=== PATIENT | male | born 1970 | race American Indian/Alaskan Native ===

== ENCOUNTER 2020-01-22 15:55 | Emergency (ER) | payer SELFPAY ==
--- NOTE | 2020-01-22 16:05 | Event Note ---
ED Screening Note Date of service: 01/22/20 Time: 16:03 ED Screening Note: Pt complains of weakness and dehydration states he was trying to donate plasma and was told he was dehydrated chronic alcoholism denies chest pain or SOB This initial assessment/diagnostic orders/clinical plan/treatment(s) is/are subject to change based on patients health status, clinical progression and re- assessment by fellow clinical providers in the ED. Further treatment and workup at subsequent clinical providers discretion. Patient/guardian urged not to elope from the ED as their condition may be serious if not clinically assessed and managed. Initial orders include: labs
[2020-01-22 17:27] LABS: Basophils # (Auto) 0.1 K/mm3 (0.0-0.1); Basophils % (Auto) 1.3 % (0.0-1.8); Eosinophils # (Auto) 0.1 K/mm3 (0.0-0.4); Eosinophils % (Auto) 1.5 % (0.0-4.3); Hematocrit 38.1 % (35.5-45.6); Hemoglobin 13.6 gm/dl (11.8-15.2); Lymphocytes # (Auto) 2.6 K/mm3 (1.2-5.4); Lymphocytes % (Auto) 41.2 % (13.4-35.0); Mean Corpuscular HGB Conc 36 % (32-34); Mean Corpuscular Volume 107 fl (84-94); Monocytes # (Auto) 0.7 K/mm3 (0.0-0.8); Monocytes % (Auto) 11.8 % (0.0-7.3); Platelet Count 221 K/mm3 (140-440); Red Blood Count 3.55 M/mm3 (3.65-5.03); Red Cell Distribution Width 14.8 % (13.2-15.2)
[2020-01-22 17:51] LABS: Alanine Aminotransferase 26 units/L (7-56); Albumin 4.3 g/dL (3.9-5); BUN/Creatinine Ratio 8; Blood Urea Nitrogen 7 mg/dL (9-20); Calcium 9.5 mg/dL (8.4-10.2); Hemolysis Index 11
[2020-01-22 18:34] LABS: Bilirubin,Urine NEG (Negative); Blood,Urine NEG (Negative); Color,Urine Yellow (Yellow); Mucus,Urine 2+ /HPF
[2020-01-22] MEDS ORDERED: SODIUM CHLORIDE 0.9% 1000 ML 1,000 ML IV ONE (19:27)
[2020-01-22 20:52] VITALS: BP 143/99
--- NOTE | 2020-01-22 21:14 | Emergency Department Report ---
ED General Adult HPI - General Chief complaint: Medical Clearance Stated complaint: DEHYDRATION Time Seen by Provider: 01/22/20 16:03 Source: patient Mode of arrival: Ambulatory Limitations: No Limitations - History of Present Illness Initial comments: Patient is a 49-year-old -[place] male with a history of chronic heavy alcohol abuse, hypertension, heavy tobacco abuse and illegal drug use presents to the ED with complaint of acute onset persistent diffuse generalized weakness and fatigue for the last 1 week. Patient states that he was initially evaluated at the plasma donation center where he had gone to donate blood, and was advised to come to the ED because he appeared dehydrated. Patient states that he could not find his veins in order for him to be admitted the night blood and therefore was told to come to the ED for evaluation of possible dehydration. Patient denies chest pain, shortness of breath, fever, chills, cough, abdominal pain, nausea and vomiting or diarrhea, dysuria, urinary frequency and urgency, sore throat, nasal and sinus congestion or headache. MD Complaint: generalized weakness and fatigue; dehydrated -: Gradual, week(s) (1) Location: head, chest Radiation: non-radiation Severity scale (0 -10): 0 Quality: dull Consistency: constant Improves with: none Worsens with: none Associated Symptoms: denies other symptoms, loss of appetite, malaise, weakness. denies: confusion, chest pain, cough, diaphoresis, fever/chills, headaches, nausea/vomiting, rash, seizure, shortness of breath, syncope, other Treatments Prior to Arrival: none - Related Data Previous Rx's Medication Instructions Recorded Last Taken Type Amoxicillin [Trimox CAP] 500 mg PO Q8H #21 capsule 12/28/14 Unknown Rx Ibuprofen [Motrin 800 MG tab] 800 mg PO Q8HR PRN #60 tablet 12/28/14 Unknown Rx traMADoL [Ultram 50 MG tab] 50 mg PO Q4HR PRN #14 tablet 12/28/14 Unknown Rx Allergies Allergy/AdvReac Type Severity Reaction Status Date / Time Penicillins Allergy Unknown Verified 11/25/19 23:57 ED Review of Systems ROS: Stated complaint: DEHYDRATION Other details as noted in HPI Constitutional: malaise, weakness. denies: chills, fever Eyes: denies: eye pain, eye discharge, vision change ENT: denies: ear pain, throat pain Respiratory: denies: cough, shortness of breath, wheezing Cardiovascular: denies: chest pain, palpitations Endocrine: no symptoms reported Gastrointestinal: denies: abdominal pain, nausea, vomiting, diarrhea Genitourinary: denies: urgency, dysuria Musculoskeletal: denies: back pain, joint swelling, arthralgia Skin: denies: rash, lesions Neurological: denies: headache, weakness, paresthesias, confusion Psychiatric: denies: anxiety, depression Hematological/Lymphatic: denies: easy bleeding, easy bruising ED Past Medical Hx - Past Medical History Previous Medical History?: Yes Hx Hypertension: Yes Hx Congestive Heart Failure: No Hx Diabetes: No Hx Asthma: No Hx COPD: No - Surgical History Past Surgical History?: No - Social History Smoking Status: Current Every Day Smoker Substance Use Type: Alcohol - Medications Home Medications: Home Medications Medication Instructions Recorded Confirmed Last Taken Type Amoxicillin [Trimox CAP] 500 mg PO Q8H #21 capsule 12/28/14 Unknown Rx Ibuprofen [Motrin 800 MG tab] 800 mg PO Q8HR PRN #60 tablet 12/28/14 Unknown Rx traMADoL [Ultram 50 MG tab] 50 mg PO Q4HR PRN #14 tablet 12/28/14 Unknown Rx ED Physical Exam - General Limitations: No Limitations General appearance: alert, in no apparent distress - Head Head exam: Present: atraumatic, normocephalic, normal inspection - Eye Eye exam: Present: normal appearance, PERRL, EOMI Pupils: Present: normal accommodation - ENT ENT exam: Present: normal exam, normal orophraynx, mucous membranes moist, TM's normal bilaterally, normal external ear exam - Neck Neck exam: Present: normal inspection, full ROM - Respiratory Respiratory exam: Present: normal lung sounds bilaterally. Absent: respiratory distress, wheezes, rales, rhonchi, chest wall tenderness, accessory muscle use, decreased breath sounds, prolonged expiratory - Cardiovascular Cardiovascular Exam: Present: regular rate, normal rhythm, normal heart sounds. Absent: systolic murmur, diastolic murmur, rubs, gallop - GI/Abdominal GI/Abdominal exam: Present: soft, normal bowel sounds. Absent: tenderness, guarding, rebound, hyperactive bowel sounds, hypoactive bowel sounds, organomegaly - Extremities Exam Extremities exam: Present: normal inspection, full ROM, normal capillary refill - Back Exam Back exam: Present: normal inspection, full ROM. Absent: tenderness, CVA tenderness (R), CVA tenderness (L), muscle spasm, paraspinal tenderness, vertebral tenderness - Neurological Exam Neurological exam: Present: alert, oriented X3, CN II-XII intact, normal gait, reflexes normal - Psychiatric Psychiatric exam: Present: normal affect, normal mood - Skin Skin exam: Present: warm, dry, intact, normal color. Absent: rash ED Course Vital Signs 01/22/20 01/22/20 16:00 20:52 Temperature 98.0 F 98.1 F Pulse Rate 61 73 Respiratory 16 16 Rate Blood Pressure 106/72 143/99 [Right] O2 Sat by Pulse 100 98 Oximetry ED Medical Decision Making - Lab Data Result diagrams: 01/22/20 17:00 01/22/20 17:00 - Radiology Data Radiology results: report reviewed, image reviewed - Medical Decision Making This is a 49-year-old -[place] male with a history of chronic heavy alcohol abuse, hypertension, heavy tobacco abuse and illegal drug use presents to the ED with complaint of acute onset persistent diffuse generalized weakness and fatigue for the last 1 week. Patient states that he was initially evaluated at the plasma donation center where he had gone to donate blood, and was advised to come to the ED because he appeared dehydrated. Patient states that he could not find his veins in order for him to be admitted the night blood and therefore was told to come to the ED for evaluation of possible dehydration. In the ED, patient is alert and oriented x3 and is not in distress. Patient is hemodynamically stable. Lab test results were reviewed and are all nonactionable. Chest x-ray shows no acute cardiopulmonary abnormalities or pneumonitis. Patient received normal saline 1 L IV bolus x1 in the ED. On reevaluation, patient felt better and was discharged home and advised to continue to hydrate at home and follow-up with his primary care physician in 5 to 7 days for reevaluation. Patient was also counseled on the importance of quitting tobacco, alcohol and substance abuse. Patient was advised to return to the ED immediately if symptoms get worse. - Differential Diagnosis Polysubstance abuse, dehydration, generalized weakness Critical care attestation.: If time is entered above; I have spent that time in minutes in the direct care of this critically ill patient, excluding procedure time. ED Disposition Clinical Impression: Generalized weakness Disposition: DC-01 TO HOME OR SELFCARE Is pt being admited?: No Does the pt Need Aspirin: No Condition: Stable Instructions: Weakness (ED) Additional Instructions: All lab test results are unremarkable including chest x-ray which shows no acute cardiopulmonary abnormalities. Therefore drink plenty of fluids and follow-up with your primary care physician as needed. Return to the ED immediately if symptoms get worse. Consider quitting tobacco smoking habit, alcohol abuse and illegal drug use. Referrals: [facility] [Outside] - 3-5 Days Time of Disposition: 21:20 Print Language: MAORI
--- NOTE | 2020-01-22 21:24 | XRay Report ---
CHEST 2 VIEWS INDICATION / CLINICAL INFORMATION: Weakness, dehydration COMPARISON: Radiograph dated 11/25/2019. FINDINGS: SUPPORT DEVICES: None. HEART / MEDIASTINUM: Stable. LUNGS / PLEURA: No significant pulmonary or pleural abnormality. No pneumothorax. ADDITIONAL FINDINGS: No significant additional findings. IMPRESSION: No acute cardiopulmonary abnormality. Signer Name: Karson Monaco MD Signed: 01/22/2020 9:19 PM Workstation Name: [id number]
== END 2020-01-22 21:30 | disposition home or self-care (01) ==
LOC: ED 15:55
DX: R53.1 Weakness (principal); I10 Essential (primary) hypertension; F17.200 Nicotine dependence, unspecified, uncomplicated; Z79.899 Other long term (current) drug therapy; Z88.0 Allergy status to penicillin
CPT/HCPCS: 36415; 71046; 80053; 81001; 84484; 85025; 93005; 96360; 99284; J7030

== ENCOUNTER 2021-12-26 12:58 | Emergency (ER) | payer SELFPAY ==
[2021-12-26] MEDS ORDERED: HALOPERIDOL LACTATE 5 MG/1 ML INJ IM ONE (13:17)
[2021-12-26] MEDS ORDERED: LORazepam 2 MG/ML VIAL IV PRN ×3 (13:23)
[2021-12-26] MEDS ORDERED: ONDANSETRON 4 MG/2 ML INJ IV ONE (13:23)
[2021-12-26] MEDS ORDERED: PANTOPRAZOLE 40 MG INJ IV ONE (13:23)
--- NOTE | 2021-12-26 13:27 | Emergency Department Report ---
ED General Adult HPI - General Chief complaint: Alcohol Stated complaint: ALCOHOL WITHDRAWALS PUI?: No Time Seen by Provider: 12/26/21 13:10 Source: patient, EMS (Verbal report received from emergency medical services. E MS documentation not available at time of chart dictation ), RN notes reviewed Mode of arrival: Stretcher Limitations: No Limitations - History of Present Illness Initial comments: The patient was evaluated in the emergency department for symptoms described in the history of present illness. He/she was evaluated in the context of the global COVID-19 pandemic, which necessitated consideration that the patient might be at risk for infection with the virus that causes COVID-19. Institutional protocols and algorithms that pertain to the evaluation of patients at risk for COVID-19 are in a state of rapid change based on information released by regulatory bodies including the CDC and federal and state organizations. These policies and algorithms were followed during the patient's care in the emergency department. Please note that these policies, procedures and recommendations changed on a rapid basis. The patient is a 51-year-old gentleman. He has a history of alcohol dependence. He typically drinks daily. He presents to the department today with a complaint of diffuse abdominal pain, nausea vomiting, reports mechanical fall hitting his head about a week and 1/2 to 2 weeks ago, and hallucinations. He denies homicidality and suicidality. Last alcoholic binge was 2 days ago. -: Gradual Location: back, abdomen Radiation: back, abdomen Consistency: constant Improves with: none Worsens with: eating - Related Data Previous Rx's Medication Instructions Recorded Last Taken Type Amoxicillin [Trimox CAP] 500 mg PO Q8H #21 capsule 12/28/14 Unknown Rx Ibuprofen [Motrin 800 MG tab] 800 mg PO Q8HR PRN #60 tablet 12/28/14 Unknown Rx traMADoL [Ultram 50 MG tab] 50 mg PO Q4HR PRN #14 tablet 12/28/14 Unknown Rx Allergies Allergy/AdvReac Type Severity Reaction Status Date / Time Penicillins Allergy Unknown Verified 12/26/21 13:03 ED Review of Systems ROS: Stated complaint: ALCOHOL WITHDRAWALS Other details as noted in HPI Constitutional: malaise, weakness. denies: fever Eyes: denies: eye discharge ENT: denies: epistaxis Respiratory: denies: cough Cardiovascular: denies: chest pain Gastrointestinal: abdominal pain, nausea, vomiting Genitourinary: denies: dysuria Musculoskeletal: back pain, arthralgia, myalgia Neurological: weakness. denies: numbness, paresthesias Psychiatric: anxiety, auditory hallucinations. denies: visual hallucinations, homicidal thoughts, suicidal thoughts ED Past Medical Hx - Past Medical History Hx Hypertension: Yes Hx Congestive Heart Failure: No Hx Diabetes: No Hx Asthma: No Hx COPD: No - Social History Smoking Status: Current Every Day Smoker Substance Use Type: Alcohol - Medications Home Medications: Home Medications Medication Instructions Recorded Confirmed Last Taken Type Amoxicillin [Trimox CAP] 500 mg PO Q8H #21 capsule 12/28/14 Unknown Rx Ibuprofen [Motrin 800 MG tab] 800 mg PO Q8HR PRN #60 tablet 12/28/14 Unknown Rx traMADoL [Ultram 50 MG tab] 50 mg PO Q4HR PRN #14 tablet 12/28/14 Unknown Rx ED Physical Exam - General Limitations: No Limitations General appearance: alert, anxious, in distress - Head Head exam: Present: atraumatic, normocephalic - Eye Eye exam: Present: normal appearance. Absent: nystagmus - ENT ENT exam: Present: normal orophraynx, mucous membranes dry, normal external ear exam, other (Tongue fasciculations noted) - Neck Neck exam: Present: normal inspection, full ROM. Absent: tenderness, meningismus - Respiratory Respiratory exam: Present: normal lung sounds bilaterally. Absent: respiratory distress, wheezes, rales, rhonchi, stridor, decreased breath sounds - Cardiovascular Cardiovascular Exam: Present: normal rhythm, tachycardia, normal heart sounds. Absent: bradycardia, irregular rhythm, systolic murmur, diastolic murmur, rubs, gallop - GI/Abdominal GI/Abdominal exam: Present: soft, tenderness. Absent: distended, guarding, rebound, rigid, pulsatile mass - Rectal Rectal exam: Present: deferred - Extremities Exam Extremities exam: Present: normal inspection, full ROM, other (2+ pulses noted in the bilateral upper and lower extremities. There is no palpable cord. negative Homans sign. Muscular compartments are soft. The pelvis is stable.). Absent: pedal edema, calf tenderness - Back Exam Back exam: Present: normal inspection, muscle spasm, paraspinal tenderness. Absent: tenderness, CVA tenderness (R), CVA tenderness (L), vertebral tenderness - Neurological Exam Neurological exam: Present: alert, oriented X3, reflexes normal, other (No facial droop. Tongue midline. Extraocular movements intact bilaterally. Facial sensation intact to light touch in V1, V2, V3 distribution bilaterally. 5 and a 5 strength in 4 extremities. Sensation intact to light touch in 4 extremities.). Absent: motor sensory deficit - Psychiatric Psychiatric exam: Present: anxious. Absent: homicidal ideation, suicidal ideation - Skin Skin exam: Present: warm, dry, intact, normal color. Absent: rash ED Course Vital Signs 12/26/21 12/26/21 12/26/21 12:59 13:16 13:30 Temperature 98 F Pulse Rate 101 H 97 H Respiratory 18 20 Rate Blood Pressure 140/113 Blood Pressure 160/110 [Left] O2 Sat by Pulse 98 99 99 Oximetry 12/26/21 12/26/21 12/26/21 13:46 14:00 14:16 Temperature Pulse Rate 98 H 99 H Respiratory 12 11 L Rate Blood Pressure 140/113 171/116 171/116 Blood Pressure [Left] O2 Sat by Pulse 99 99 81 L Oximetry 12/26/21 12/26/21 12/26/21 14:30 14:46 15:28 Temperature Pulse Rate 100 H Respiratory 18 Rate Blood Pressure 171/116 171/116 182/119 Blood Pressure [Left] O2 Sat by Pulse 99 100 Oximetry 12/26/21 12/26/21 12/26/21 15:30 15:46 16:00 Temperature Pulse Rate 98 H 93 H 91 H Respiratory 16 14 16 Rate Blood Pressure 182/119 171/116 182/119 Blood Pressure [Left] O2 Sat by Pulse 100 98 99 Oximetry 12/26/21 16:16 Temperature Pulse Rate 118 H Respiratory 34 H Rate Blood Pressure 182/119 Blood Pressure [Left] O2 Sat by Pulse 100 Oximetry - Reevaluation(s) Reevaluation #1: 12/26/21 16:00 Differential diagnosis, including but not limited to: Delirium tremens, acute alcohol withdrawal, acute pancreatitis, closed head injury, metabolic acidosis, electrolyte derangement Assessment and plan: 51-year-old gentleman with acute alcohol withdrawal, hallucinations, tachycardia, tongue fasciculations, complicated by acute abdominal pain. He is found to have evidence of multisystem alcoholic disease, manifested by acute pancreatitis, metabolic acidosis, and hypomagnesemia. He is not homicidal or suicidal. He does not meet criteria for 1013 hold Given history of fall and alcoholism, a CT scan of the brain, facial bones and cervical spine are obtained. No acute traumatic findings were noted. CT scan abdomen pelvis confirms acute uncomplicated pancreatitis. Start banana bag, magnesium supplementation, Protonix, and haloperidol. IV fluids, and magnesium supplementation Have called/placed page to hospital physician, to arrange admission 12/26/21 16:[address] Beck for further evaluation and management 12/26/21 16:18 12/26/21 16:27 initial ciwa score 20 prior to [facility] ED Medical Decision Making - Lab Data Result diagrams: 12/26/21 13:36 12/26/21 13:36 Vital Signs 12/26/21 12/26/21 12/26/21 12:59 13:16 13:30 Temperature 98 F Pulse Rate 101 H 97 H Respiratory 18 20 Rate Blood Pressure 140/113 Blood Pressure 160/110 [Left] O2 Sat by Pulse 98 99 99 Oximetry 12/26/21 12/26/21 12/26/21 13:46 14:00 14:16 Temperature Pulse Rate 98 H 99 H Respiratory 12 11 L Rate Blood Pressure 140/113 171/116 171/116 Blood Pressure [Left] O2 Sat by Pulse 99 99 81 L Oximetry Lab Results 12/26/21 12/26/21 12/26/21 Range/Units 13:36 13:36 13:36 WBC 7.0 (4.5-11.0) K/mm3 RBC 3.68 (3.65-5.03) M/mm3 Hgb 13.6 (11.8-15.2) gm/dl Hct 39.9 (35.5-45.6) % MCV 109 H (84-94) fl MCH 37 H (28-32) pg MCHC 34 (32-34) % RDW 15.2 (13.2-15.2) % Plt Count 135 L (140-440) K/mm3 Lymph % (Auto) 8.9 L (13.4-35.0) % Murray % (Auto) 10.1 H (0.0-7.3) % Eos % (Auto) 0.0 (0.0-4.3) % Baso % (Auto) 0.2 (0.0-1.8) % Lymph # (Auto) 0.6 L (1.2-5.4) K/mm3 Murray # (Auto) 0.7 (0.0-0.8) K/mm3 Eos # (Auto) 0.0 (0.0-0.4) K/mm3 Baso # (Auto) 0.0 (0.0-0.1) K/mm3 Seg Neutrophils % 80.8 H (40.0-70.0) % Seg Neutrophils # 5.6 (1.8-7.7) K/mm3 PT 14.1 (12.2-14.9) Sec. INR 0.98 (0.87-1.13) APTT 27.5 (24.2-36.6) Sec. Sodium 136 L (137-145) mmol/L Potassium 3.7 (3.6-5.0) mmol/L Chloride 91.5 L (98-107) mmol/L Carbon Dioxide 28 (22-30) mmol/L Anion Gap 20 mmol/L BUN 6 L (9-20) mg/dL Creatinine 0.5 L (0.8-1.3) mg/dL Estimated GFR > 60 ml/min BUN/Creatinine Ratio 12 % Glucose 91 (75-100) mg/dL Calcium 9.5 (8.4-10.2) mg/dL Magnesium (1.7-2.3) mg/dL Total Bilirubin 0.60 (0.1-1.2) mg/dL AST 25 (5-40) units/L ALT 16 (7-56) units/L Alkaline Phosphatase 78 (35-129) units/L Total Creatine Kinase (55-170) units/L Troponin T (0.00-0.029) ng/mL Total Protein 7.9 (6.3-8.2) g/dL Albumin 4.3 (3.9-5) g/dL Albumin/Globulin Ratio 1.2 % Lipase (13-60) units/L Salicylates (2.8-20.0) mg/dL Acetaminophen (10.0-30.0) ug/mL Plasma/Serum Alcohol (0-0.07) % 12/26/21 12/26/21 12/26/21 Range/Units 13:36 13:36 13:36 WBC (4.5-11.0) K/mm3 RBC (3.65-5.03) M/mm3 Hgb (11.8-15.2) gm/dl Hct (35.5-45.6) % MCV (84-94) fl MCH (28-32) pg MCHC (32-34) % RDW (13.2-15.2) % Plt Count (140-440) K/mm3 Lymph % (Auto) (13.4-35.0) % Murray % (Auto) (0.0-7.3) % Eos % (Auto) (0.0-4.3) % Baso % (Auto) (0.0-1.8) % Lymph # (Auto) (1.2-5.4) K/mm3 Murray # (Auto) (0.0-0.8) K/mm3 Eos # (Auto) (0.0-0.4) K/mm3 Baso # (Auto) (0.0-0.1) K/mm3 Seg Neutrophils % (40.0-70.0) % Seg Neutrophils # (1.8-7.7) K/mm3 PT (12.2-14.9) Sec. INR (0.87-1.13) APTT (24.2-36.6) Sec. Sodium (137-145) mmol/L Potassium (3.6-5.0) mmol/L Chloride (98-107) mmol/L Carbon Dioxide (22-30) mmol/L Anion Gap mmol/L BUN (9-20) mg/dL Creatinine (0.8-1.3) mg/dL Estimated GFR ml/min BUN/Creatinine Ratio % Glucose (75-100) mg/dL Calcium (8.4-10.2) mg/dL Magnesium 1.50 L (1.7-2.3) mg/dL Total Bilirubin (0.1-1.2) mg/dL AST (5-40) units/L ALT (7-56) units/L Alkaline Phosphatase (35-129) units/L Total Creatine Kinase 102 (55-170) units/L Troponin T < 0.010 (0.00-0.029) ng/mL Total Protein (6.3-8.2) g/dL Albumin (3.9-5) g/dL Albumin/Globulin Ratio % Lipase 1523 H (13-60) units/L Salicylates < 0.3 L (2.8-20.0) mg/dL Acetaminophen (10.0-30.0) ug/mL Plasma/Serum Alcohol < 0.01 (0-0.07) % 12/26/21 Range/Units 13:36 WBC (4.5-11.0) K/mm3 RBC (3.65-5.03) M/mm3 Hgb (11.8-15.2) gm/dl Hct (35.5-45.6) % MCV (84-94) fl MCH (28-32) pg MCHC (32-34) % RDW (13.2-15.2) % Plt Count (140-440) K/mm3 Lymph % (Auto) (13.4-35.0) % Murray % (Auto) (0.0-7.3) % Eos % (Auto) (0.0-4.3) % Baso % (Auto) (0.0-1.8) % Lymph # (Auto) (1.2-5.4) K/mm3 Murray # (Auto) (0.0-0.8) K/mm3 Eos # (Auto) (0.0-0.4) K/mm3 Baso # (Auto) (0.0-0.1) K/mm3 Seg Neutrophils % (40.0-70.0) % Seg Neutrophils # (1.8-7.7) K/mm3 PT (12.2-14.9) Sec. INR (0.87-1.13) APTT (24.2-36.6) Sec. Sodium (137-145) mmol/L Potassium (3.6-5.0) mmol/L Chloride (98-107) mmol/L Carbon Dioxide (22-30) mmol/L Anion Gap mmol/L BUN (9-20) mg/dL Creatinine (0.8-1.3) mg/dL Estimated GFR ml/min BUN/Creatinine Ratio % Glucose (75-100) mg/dL Calcium (8.4-10.2) mg/dL Magnesium (1.7-2.3) mg/dL Total Bilirubin (0.1-1.2) mg/dL AST (5-40) units/L ALT (7-56) units/L Alkaline Phosphatase (35-129) units/L Total Creatine Kinase (55-170) units/L Troponin T (0.00-0.029) ng/mL Total Protein (6.3-8.2) g/dL Albumin (3.9-5) g/dL Albumin/Globulin Ratio % Lipase (13-60) units/L Salicylates (2.8-20.0) mg/dL Acetaminophen 5.0 L (10.0-30.0) ug/mL Plasma/Serum Alcohol (0-0.07) % - EKG Data -: EKG Interpreted by Nm EKG shows normal: sinus rhythm Rate: normal - EKG Data 12/26/21 14:35 The EKG is interpreted at 14: 28 Sinus rhythm, rate 96 bpm. Leftward axis deviation, borderline left anterior fascicular block, left ventricular hypertrophy, and poor R wave progression. This is an abnormal EKG. This is not a STEMI - Radiology Data Radiology results: pending, report reviewed, image reviewed CT CERVICAL SPINE WITHOUT CONTRAST INDICATION: Alcohol dependence and fall. TECHNIQUE: Axial CT images of the spine were obtained. Sagittal and coronal reformatted images were produced. All CT scans at this location are performed using CT dose reduction for ALARA by means of automated exposure control. COMPARISON: None available. FINDINGS: ACUTE FRACTURE(S) OR SUBLUXATION: None. SPINAL DEGENERATIVE CHANGES: Mild degenerative disc disease at C4-5, C5-6, and C6-7. PARASPINAL SOFT TISSUES: No soft tissue swelling or other acute abnormalities. ADDITIONAL FINDINGS: No significant additional findings. IMPRESSION: 1. No acute fracture or subluxation in the spine in neutral posit ion. Signer Name: Gigi Turner MD Signed: 12/26/2021 2:52 PM Workstation Name: [id number] CT MAXILLOFACIAL WITHOUT CONTRAST INDICATION: Fall and bloody sinuses. TECHNIQUE: All CT scans at this location are performed using CT dose reduction for ALARA by means of automated exposure control. COMPARISON: None available. FINDINGS: FACIAL BONES: No fracture or other significant abnormality. PARANASAL SINUSES: There is expansion of the left maxillary sinus with probable polyp in the left maxillary antrum. ORBITS: No significant abnormality. VISUALIZED INTRACRANIAL STRUCTURES: No significant abnormality. ADDITIONAL FINDINGS: None. IMPRESSION: 1. No acute fracture. Signer Name: Gigi Turner MD Signed: 12/26/2021 2:51 PM Workstation Name: [id number] CT abdomen pelvis w con INDICATION / CLINICAL INFORMATION: Acute abdominal pain with alcoholism. Recent fall TECHNIQUE: Axial CT imaging of abdomen and pelvis was obtained with 100 cc Omni 350 IV contrast. Coronal and sagittal reformatted imaging obtained and reviewed. All CT scans at this location are performed using CT dose reduction for ALARA by means of automated exposure control. COMPARISON: Prior CT abdomen 06/05/2010 FINDINGS: CT abdomen with contrast demonstrates focal hepatic steatosis in the left lobe of the liver adjacent to the falciform ligament. This is unchanged from CT from 2010. The remainder of the liver shows mild diffuse hepatic steatosis but no focal abnormality. Spleen is of normal size. There is mild inflammatory change/edema surrounding the body and tail of the pancreas consistent with acute pancreatitis. The pancreatic parenchyma enhances normally. Small amount of free fluid is seen tracking down the paracolic gutters bilaterally. The kidneys and adrenal glands and gallbladder all appear grossly unremarkable. Abdominal aorta is of normal caliber but does contain small amount of calcified plaque. CT pelvis with contrast demonstrates small amount of free fluid in the pelvis. No mass or focal inflammatory process is noted. A normal appendix is present in the right lower quadrant. GI tract is grossly unremarkable. Visualized lung bases are clear. I do not see acute significant osseous abnormality. IMPRESSION: 1. No evidence of acute traumatic injury given the patient's history of fall. 2. Mild inflammatory changes are present surrounding the pancreatic body and tail consistent with acute pancreatitis. Small amount of free fluid is seen within the pelvis. 3. Mild hepatic steatosis. Signer Name: Joceline Ricketts MD Signed: 12/26/2021 2:47 PM Workstation Name: [id number] CT head/brain wo con INDICATION: Fall, closed head injury. TECHNIQUE: Routine CT head without contrast. All CT scans at this location are performed using CT dose reduction for ALARA by means of automated exposure control. COMPARISON: None. FINDINGS: BRAIN / INTRACRANIAL CONTENTS: No acute hemorrhage, brain edema, mass effect, or hydrocephalus. Normal humphries-white differentiation. No chronic infarct or focal atrophy. Normal brain volume and ventricular/sulcal size for age. CALVARIUM/SKULL BASE/CRANIOCERVICAL JUNCTION: No evidence of fracture. ORBITS: No significant abnormality of visualized orbits. SINUSES / MASTOIDS: See facial CT report. ADDITIONAL FINDINGS: None. IMPRESSION: 1. No acute post-traumatic intracranial abnormality. Signer Name: Gigi Turner MD Signed: 12/26/2021 2:44 PM Workstation Name: [id number] Critical care attestation.: If time is entered above; I have spent that time in minutes in the direct care of this critically ill patient, excluding procedure time. ED Disposition Clinical Impression: Acute pancreatitis, Acute abdominal pain, Alcohol dependence, Closed head injury, Fall, Hypomagnesemia Disposition: 09 ADMITTED INPATIENT Is pt being admited?: Yes Does the pt Need Aspirin: No Condition: Good
[2021-12-26] MEDS ORDERED: THIAMINE 100 MG, FOLIC ACID 1 MG, MULTIPLE VITAMIN INJ, ADULT 10 ML in SODIUM CHLORIDE ... IV ONE (14:00)
[2021-12-26 14:04] LABS: Basophils % (Auto) 0.2 % (0.0-1.8); Hematocrit 39.9 % (35.5-45.6); Hemoglobin 13.6 gm/dl (11.8-15.2); Lymphocytes # (Auto) 0.6 K/mm3 (1.2-5.4); Lymphocytes % (Auto) 8.9 % (13.4-35.0); Mean Corpuscular HGB Conc 34 % (32-34); Mean Corpuscular Volume 109 fl (84-94); Monocytes # (Auto) 0.7 K/mm3 (0.0-0.8); Monocytes % (Auto) 10.1 % (0.0-7.3); Platelet Count 135 K/mm3 (140-440); Red Blood Count 3.68 M/mm3 (3.65-5.03); Red Cell Distribution Width 15.2 % (13.2-15.2)
[2021-12-26 14:11] LABS: INR 0.98 (0.87-1.13)
[2021-12-26 14:12] LABS: Partial Thromboplastin Time 27.5 Sec. (24.2-36.6)
[2021-12-26 14:15] LABS: Alanine Aminotransferase 16 units/L (7-56); Albumin 4.3 g/dL (3.9-5); BUN/Creatinine Ratio 12; Blood Urea Nitrogen 6 mg/dL (9-20); Calcium 9.5 mg/dL (8.4-10.2); Hemolysis Index 6
[2021-12-26] MEDS ORDERED: MAGNESIUM SULFATE 2 GM/50 ML BAG IV ONE (14:34)
--- NOTE | 2021-12-26 15:48 | Cat Scan Report ---
CT head/brain wo con INDICATION: Fall, closed head injury. TECHNIQUE: Routine CT head without contrast. All CT scans at this location are performed using CT dose reduction for ALARA by means of automated exposure control. COMPARISON: None. FINDINGS: BRAIN / INTRACRANIAL CONTENTS: No acute hemorrhage, brain edema, mass effect, or hydrocephalus. Shalonda l humphries-white differentiation. No chronic infarct or focal atrophy. Normal brain volume and ventricula r/sulcal size for age. CALVARIUM/SKULL BASE/CRANIOCERVICAL JUNCTION: No evidence of fracture. ORBITS: No significant abnormality of visualized orbits. SINUSES / MASTOIDS: See facial CT report. ADDITIONAL FINDINGS: None. IMPRESSION: 1. No acute post-traumatic intracranial abnormality. Signer Name: Gigi Turner MD Signed: 12/26/2021 3:44 PM Workstation Name: [id number]
--- NOTE | 2021-12-26 15:52 | Cat Scan Report ---
CT abdomen pelvis w con INDICATION / CLINICAL INFORMATION: Acute abdominal pain with alcoholism. Recent fall TECHNIQUE: Axial CT imaging of abdomen and pelvis was obtained with 100 cc Omni 350 IV contrast. Coronal and sag ittal reformatted imaging obtained and reviewed. All CT scans at this location are performed using C T dose reduction for ALARA by means of automated exposure control. COMPARISON: Prior CT abdomen 06/05/2010 FINDINGS: CT abdomen with contrast demonstrates focal hepatic steatosis in the left lobe of the liver adjacent to the falciform ligament. This is unchanged from CT from 2010. The remainder of the liver shows mild diffuse hepatic steatosis but no focal abnormality. Spleen is of normal size. There is mild inflamma tory change/edema surrounding the body and tail of the pancreas consistent with acute pancreatitis. T he pancreatic parenchyma enhances normally. Small amount of free fluid is seen tracking down the para colic gutters bilaterally. The kidneys and adrenal glands and gallbladder all appear grossly unremarkable. Abdominal aorta is of normal caliber but does contain small amount of calcified plaque. CT pelvis with contrast demonstrates small amount of free fluid in the pelvis. No mass or focal infla mmatory process is noted. A normal appendix is present in the right lower quadrant. GI tract is gross ly unremarkable. Visualized lung bases are clear. I do not see acute significant osseous abnormality. IMPRESSION: 1. No evidence of acute traumatic injury given the patient's history of fall. 2. Mild inflammatory changes are present surrounding the pancreatic body and tail consistent with acu te pancreatitis. Small amount of free fluid is seen within the pelvis. 3. Mild hepatic steatosis. Signer Name: Joceline Ricketts MD Signed: 12/26/2021 3:47 PM Workstation Name: [id number]
--- NOTE | 2021-12-26 15:56 | Cat Scan Report ---
CT CERVICAL SPINE WITHOUT CONTRAST INDICATION: Alcohol dependence and fall. TECHNIQUE: Axial CT images of the spine were obtained. Sagittal and coronal reformatted images were produced. Al l CT scans at this location are performed using CT dose reduction for ALARA by means of automated exp osure control. COMPARISON: None available. FINDINGS: ACUTE FRACTURE(S) OR SUBLUXATION: None. SPINAL DEGENERATIVE CHANGES: Mild degenerative disc disease at C4-5, C5-6, and C6-7. PARASPINAL SOFT TISSUES: No soft tissue swelling or other acute abnormalities. ADDITIONAL FINDINGS: No significant additional findings. IMPRESSION: 1. No acute fracture or subluxation in the spine in neutral position. Signer Name: Gigi Turner MD Signed: 12/26/2021 3:52 PM Workstation Name: [id number]
--- NOTE | 2021-12-26 15:56 | Cat Scan Report ---
CT MAXILLOFACIAL WITHOUT CONTRAST INDICATION: Fall and bloody sinuses. TECHNIQUE: All CT scans at this location are performed using CT dose reduction for ALARA by means of automated e xposure control. COMPARISON: None available. FINDINGS: FACIAL BONES: No fracture or other significant abnormality. PARANASAL SINUSES: There is expansion of the left maxillary sinus with probable polyp in the left max illary antrum. ORBITS: No significant abnormality. VISUALIZED INTRACRANIAL STRUCTURES: No significant abnormality. ADDITIONAL FINDINGS: None. IMPRESSION: 1. No acute fracture. Signer Name: Gigi Turner MD Signed: 12/26/2021 3:51 PM Workstation Name: [id number]
[2021-12-26] MEDS ORDERED: LACTATED RINGERS 1,000 ML IV ONE (15:58)
[2021-12-26] MEDS ORDERED: SODIUM CHLORIDE 0.9% 1000 ML 3,000 ML IV ONE (17:00)
--- NOTE | 2021-12-26 19:50 | Event Note ---
Evaristo score: 0 Bisap score: 0
[2021-12-26] MEDS ORDERED: amLODIPine 5 MG TAB PO ONE (19:51)
[2021-12-26] MEDS ORDERED: amLODIPine 10 MG TAB PO ONE (20:15)
[2021-12-26 22:17] VITALS: BP 175/83
--- NOTE | 2021-12-27 09:07 | Electrocardiograph Report ---
[facility] Test Date: 2021-12-26 Test Time: 14:28:24 Pat Name: LILA TREVIZO Department: Room: Gender: M [employer]: NURSE : 1970 Requested By: MARIELENA BENITEZ Order Number: [id number] Reading MD: Parag Tirado Measurements Intervals [place] Rate: 96 P: 49 GA: 130 QRS: -37 QRSD: 90 T: 28 QT: 381 QTc: 481 Interpretive Statements Sinus rhythm Probable left atrial enlargement nonspecific st-t No previous ECG available for comparison Electronically Signed On 12-27-2021 9:07:11 EDT by Parag Tirado
== END 2021-12-26 22:16 | disposition admitted as inpatient to this hospital (09) ==
LOC: ED 12:58
DX: S09.90XA Unspecified injury of head, initial encounter (principal); K85.90 Acute pancreatitis without necrosis or infection, unspecified; F10.20 Alcohol dependence, uncomplicated; E83.42 Hypomagnesemia; I10 Essential (primary) hypertension; F17.200 Nicotine dependence, unspecified, uncomplicated; Z88.0 Allergy status to penicillin; Z79.899 Other long term (current) drug therapy; Y90.0 Blood alcohol level of less than 20 mg/100 ml; W18.39XA Other fall on same level, initial encounter; Y93.89 Activity, other specified; Y92.89 Other specified places as the place of occurrence of the external cause; Y99.8 Other external cause status
CPT/HCPCS: 36415; 70450; 70486; 72125; 74177; 80053; 82550; 83690; 83735; 84484; 85025; 85610; 85730; 93005; 96365; 96366; 96368; 96372; 96375; 99285; C9113; J1630; J2405; J3411; J3475; J3490; J7030; Q9967; 80320; G0480